=== PATIENT | female | born 1935 | race Caucasian/White ===

== ENCOUNTER 2016-10-17 08:37 | Outpatient (CLI) | payer MEDICARE, BC | END 2016-10-17 08:38 | disposition home or self-care (01) | DX: N32.81 Overactive bladder (principal); R35.0 Frequency of micturition ==

== ENCOUNTER 2016-10-31 10:22 | Outpatient (CLI) | payer MEDICARE, BC | END 2016-10-31 10:23 | disposition home or self-care (01) | DX: N39.0 Urinary tract infection, site not specified (principal) ==

== ENCOUNTER 2016-11-21 08:00 | Outpatient (CLI) | payer MEDICARE, BC | END 2016-11-21 08:01 | disposition home or self-care (01) | DX: R35.0 Frequency of micturition (principal) ==

== ENCOUNTER 2016-12-19 08:28 | Outpatient (CLI) | payer MEDICARE, BC | END 2016-12-19 08:29 | disposition home or self-care (01) | DX: R35.0 Frequency of micturition (principal) ==